=== PATIENT | female | born 1995 | race African-American/Black ===

== ENCOUNTER 2019-12-02 05:22 | Emergency (ER) | payer OTHER, SELFPAY ==
--- NOTE | ~2019-12-02 | CT_ITS ---
EXAMINATION: CT abdomen pelvis wo con DATE: 12/02/2019 06:34 INDICATION: Right upper quadrant abdominal and flank pain TECHNIQUE: Computed tomography (CT) of the abdomen and pelvis was performed without intravenous contr ast. Automated exposure control and iterative reconstruction technique were employed. The dose-length product was 288.39 mGy-cm. COMPARISON: None FINDINGS: Mild atelectasis in the right middle lobe. Visualized inferior heart is normal. No pericardial or ple ural effusion. Liver, gallbladder, spleen, pancreas and bilateral adrenal glands are normal. Kidneys and ureters are normal with no urolithiasis or hydroureteronephrosis. There are couple phleboliths in the pelvis. No bowel obstruction. Appendix is normal. Bladder and anteverted uterus are normal. The bilateral adnexa appear enlarged. There is mild edema/stranding in the pelvis and along the right par acolic gutter. No abscess or free intraperitoneal gas. Shotty bilateral inguinal lymph nodes. No path ologically enlarged abdominal lymphadenopathy. Bones are unremarkable. IMPRESSION: 1. Mild inflammatory stranding in the pelvis and right paracolic gutter which is of indeterminate ebonie ology with normal gallbladder and appendix and no urolithiasis or hydronephrosis. Would consider urin dixie tract infection as well as pelvic inflammatory disease considering the enlarged bilateral adnexa. Reviewed, dictated and finalized at location A. IMPRESSION: 1. Mild inflammatory stranding in the pelvis and right paracolic gutter which i s of indeterminate etiology with normal gallbladder and appendix and no urolith iasis or hydronephrosis. Would consider urinary tract infection as well as pelv ic inflammatory disease considering the enlarged bilateral adnexa.
[2019-12-02 05:29] VITALS: BP 143/100; PULSE 101; RESP 15; TEMP 37.2; O2SAT 100
[2019-12-02 05:38] VITALS: BP 143/100; PULSE 101; RESP 15; TEMP 37.2; O2SAT 100
[2019-12-02 05:43] LABS: Basophils Absolute Auto 0.1 K/mm3 (0.0-0.1); Basophils Percent Auto 0.6 % (0.2-1.2); Eosinophils Absolute Auto 0.1 K/mm3 (0-0.3); Eosinophils Percent Auto 0.9 % (0-4.4); Hematocrit 39.5 % (37.0-47.0); Hemoglobin 12.8 g/dL (12.0-15.0); Immature Granulocyte Absolute 0.06 K/mm3 (0.00-0.031); Immature Granulocyte Percent A 0.5 % (0-0.5); Lymphocytes Absolute Auto 2.32 K/mm3 (0.9-3.2); Lymphocytes Percent Auto 18.6 % (18.3-44.2); Mean Corpuscular HGB Conc 32.4 g/dl (32-36); Mean Corpuscular Hemoglobin 30.7 pg (26-34); Mean Corpuscular Volume 94.7 fl (80-100); Mean Platelet Volume 10.6 fl (7.4-10.4); Monocytes Absolute Auto 1.3 K/mm3 (0.1-0.6); Monocytes Percent Auto 10.4 % (2.6-8.5); Neutrophils Absolute Auto 8.6 K/mm3 (1.3-6.7); Platelet Count Result 285 k/mm3 (150-375); Red Blood Count 4.17 M/mm3 (4.2-5.4); Red Cell Distribution Width 13.8 % (11.5-14.5); White Blood Count 12.5 K/mm3 (4.5-10.0)
[2019-12-02 05:54] LABS: Alanine Aminotransferase 9 U/L (4-35); Albumin Level 4.2 g/dL (3.5-5.1); Alkaline Phosphatase 72 U/L (38-126); Aspartate Amino Transferase 20 U/L (14-36); Bilirubin,Total 0.6 mg/dL (0.2-1.3); Blood Urea Nitrogen 7 mg/dL (7-17); Carbon Dioxide 31 mmol/L (22-30); Chloride 101 mmol/L (98-107); Estimated Glomerular Filt Rate > 60; Glucose 104 mg/dL (65-105); Potassium 3.8 mmol/L (3.4-5.0); Sodium 137 mmol/L (137-145)
[2019-12-02 05:57] LABS: Add Urine Microscopic? YES; Appearance Urine Cloudy (Clear); Bacteria Urine Trace /hpf; Bilirubin Urine Negative (Negative); Blood Urine 1+ (Negative); Color Urine Amber (Yellow); Glucose Urine UA Negative (Negative); Ketones Urine Negative (Negative); Leukocyte Esterase Ur Negative LEU/UL (Negative); Mucus Urine Rare /lpf; Nitrate Urine Negative (Negative); Protein Urine 1+ mg/dL (Negative); Specific Grav Ur 1.019 (1.001-1.035); Squamous Epithelial Cell Urine Few /hpf (Few); Urobilinogen Urine Negative mg/dL (<2.0); WBC Urine 0-3 /hpf
[2019-12-02 06:18] LABS: Lipase < 10 U/L (23-300)
[2019-12-02] MEDS: MORPHINE SULFATE 4 MG/ML INJ IV PUSH (06:43)
[2019-12-02 06:44] VITALS: BP 117/83; PULSE 80; RESP 12; O2SAT 100
--- NOTE | 2019-12-02 06:53 | ED.ABDPAIN ---
HPI - Abdominal Pain General Chief Complaint: Abdominal Pain Stated Complaint: flank pain Time Seen by Provider: 12/02/19 06:12 History of Present Illness HPI narrative: Patient is a 23-year-old female who presents ER with right-sided abdominal pain. Ongoing for the last day. She reports she was seen in an urgent care yesterday and diagnosed with UTI and prescribed Macrobid. The pain began after that. She reports she is had some urinary frequency and dysuria. No vaginal discharge or vaginal bleeding. No nausea/vomiting/dizziness. Pain is worse when she lays on her left side better when she lays down flat. She is not taking any oral medications for this discomfort. She reports mild constipation but did have a bowel movement today. No diarrhea. Pain does not seem to radiate. No URI symptoms. Patient reports she would like an STD check but is not having symptoms at this time. Related Data Allergies Allergy/AdvReac Type Severity Reaction Status Date / Time No Known Allergies Allergy Unverified 01/21/18 13:35 Review of Systems Review of Systems: All systems reviewed & are unremarkable except as noted in HPI and below Constitutional: Constitutional: Denies chills, Denies fever(s) and Denies weakness ENT: Denies nasal congestion and Denies sore throat Respiratory: Respiratory: Denies cough and Denies dyspnea Gastrointestinal: Gastrointestinal: Reports abdominal pain, Denies constipation, Denies diarrhea, Denies nausea and Denies vomiting Genitourinary: Genitourinary: Denies abnormal vaginal bleeding, Denies hematuria, Reports nocturia, Reports dysuria, Denies pelvic pain, Reports flank pain and Denies vaginal discharge PMFSH Past Medical History Medical History (Updated 12/02/19 @ 07:54 by Gonzalez Amaral MD) No pertinent past medical history Surgical History Surgical History (Updated 12/02/19 @ 06:58 by Gonzalez Amaral MD) H/O umbilical hernia repair Social History Social History (Updated 12/02/19 @ 06:59 by Gonzalez Amaral MD) Social History: Denies tobacco use. Exam Narrative: Exam Narrative: GENERAL: Well-appearing, well-nourished, and in no acute distress. HEAD: Normocephalic, atraumatic. CHEST: Clear to auscultation. No respiratory distress. HEART: Regular rate and rhythm. Normal peripheral pulses. ABDOMEN: Soft, tender palpation right upper quadrant with guarding, nondistended. : Normal appearing cervix with no discharge. Pt w/o CMT or adnexal fullness/tendernss. EXTREMITIES: Normal range of motion. No edema. SKIN: Warm, dry, no rash. NEURO: Alert and oriented x3. PSYCH: Normal mood and affect. Course Course Emergency Course: Patient informed of results. Will treat as PID. IM ceftriaxone here, and oral doxycycline/Flagyl for home. Pain improved with morphine. Vital Signs Vital signs: Vital Signs Temperature 99.0 F 12/02/19 05:29 Pulse Rate 101 H 12/02/19 05:29 Respiratory Rate 15 12/02/19 05:29 Blood Pressure 143/100 H 12/02/19 05:29 Pulse Oximetry 100 12/02/19 05:29 Temperature 99.0 F 12/02/19 05:38 Pulse Rate 90 12/02/19 07:36 Respiratory Rate 16 12/02/19 07:36 Blood Pressure 124/87 12/02/19 07:36 Pulse Oximetry 100 12/02/19 07:36 MDM - Abdominal Pain Lab Data Result diagrams: 12/02/19 05:37 12/02/19 05:37 Labs: Lab Results 12/02/19 12/02/19 12/02/19 Range/Units 05:37 05:37 05:43 WBC 12.5 H (4.5-10.0) K/mm3 RBC 4.17 L (4.2-5.4) M/mm3 Hgb 12.8 (12.0-15.0) g/dL Hct 39.5 (37.0-47.0) % MCV 94.7 (80-100) fl MCH 30.7 (26-34) pg MCHC 32.4 (32-36) g/dl RDW 13.8 (11.5-14.5) % Plt Count 285 (150-375) k/mm3 MPV 10.6 H (7.4-10.4) fl Immature Gran % (Auto) 0.5 (0-0.5) % Neut % (Auto) 69.0 (45.5-73.1) % Lymph % (Auto) 18.6 (18.3-44.2) % [place] % (Auto) 10.4 H (2.6-8.5) % Eos % (Auto) 0.9 (0-4.4) % Baso % (Auto) 0.6 (0.2-1.2)
[2019-12-02 07:36] VITALS: BP 124/87; PULSE 90; RESP 16; O2SAT 100
[2019-12-02] MEDS: cefTRIAXone 250 MG VIAL IM (07:43)
--- NOTE | 2019-12-02 07:45 | PC.NURSE ---
Pelvic exam done on pt by doctor Dennis with myself at bedside.
== END 2019-12-02 08:09 | disposition home or self-care (01) ==
PROVIDERS: Emergency Provider Emergency Medicine
DX: N73.9 Female pelvic inflammatory disease, unspecified (principal)
CPT/HCPCS: 36415; 74176; 80053; 81001; 81025; 83690; 85025; 87070; 87491; 87591; 87808; 96372; 96374; 99284; J0696; J2270

== ENCOUNTER 2022-01-21 21:55 | Emergency (ER) | payer OTHER, SELFPAY ==
[2022-01-21 22:03] VITALS: BP 128/79; PULSE 104; RESP 18; TEMP 36.8; O2SAT 100
--- NOTE | 2022-01-21 22:29 | ED.GENADULT ---
HPI - General Adult General Chief complaint: Unspecified Stated complaint: COVID + Time Seen by Provider: 01/21/22 22:08 Source: patient History of Present Illness HPI narrative: Patient reports she is COVID-positive and has diffuse body aches is unsure. For she started to feel unwell today went to [facility] emergency room was tested for COVID was instructed to take Tylenol. She continues to not feel well she has not attempted any medications and presented here for further evaluation. Patient reports she is approximately 5 weeks by LMP. Denies any focal abdominal pain vaginal bleeding or urinary symptoms. Reports mild cough and nausea. Related Data Home Medications Medication Instructions Recorded Confirmed No Home Medications 01/21/22 01/21/22 Allergies Allergy/AdvReac Type Severity Reaction Status Date / Time No Known Allergies Allergy Unverified 01/21/18 13:35 Review of Systems Review of Systems: CONSTITUTIONAL: Denies fever, chills, or sweats. EYES: Denies visual changes, redness, or discharge. ENT: Denies rhinorrhea, congestion, sore throat, or otalgia. CARDIOVASCULAR: Denies chest pain, palpitations, or edema. RESPIRATORY: Denies cough or dyspnea. GASTROINTESTINAL: Denies abdominal pain, nausea, vomiting, or diarrhea. GENITOURINARY: Denies dysuria or hematuria. SKIN: Denies rash or itching. MUSCULOSKELETAL: Denies back pain, joint pain, or myalgia. NEUROLOGIC: Denies headache, numbness, dizziness, or weakness. PSYCHIATRIC: Denies anxiety or depression. All systems reviewed & are unremarkable except as noted in HPI and below PMFSH Past Medical History Medical History No pertinent past medical history Surgical History Surgical History H/O umbilical hernia repair Social History Social History Social History: Denies tobacco use. Exam Narrative: GENERAL: Well-appearing, well-nourished, and in no acute distress. HEAD: Normocephalic, atraumatic. EYES: PERRLA and EOMI. ENT: Nares clear, no rhinorrhea or epistaxis. Mucous membranes moist. NECK: Supple. No masses. No JVD CHEST: Clear to auscultation. No respiratory distress. No wheezes rales or rhonchi HEART: Regular rate and rhythm. No murmur heard. Normal peripheral pulses. ABDOMEN: Soft, nontender, nondistended EXTREMITIES: Normal range of motion. No edema. SKIN: Warm, dry, no rash. NEURO: No focal deficits. Alert and oriented x3. PSYCH: Normal mood and affect. Course Reevaluation(s) Reevaluation #1: Patient reports feeling much improved results and plan reviewed with patient. Patient is comfortable outpatient plan. Date: 01/21/22 Time: 23:44 Vital Signs Vital signs: Vital Signs Temperature 36.8 C 01/21/22 22:03 Pulse Rate 104 H 01/21/22 22:03 Respiratory Rate 18 01/21/22 22:03 Blood Pressure 128/79 01/21/22 22:03 Pulse Oximetry 100 01/21/22 22:03 Temperature 36.8 C 01/21/22 22:03 Pulse Rate 97 01/22/22 00:35 Respiratory Rate 16 01/22/22 00:35 Blood Pressure 121/72 01/22/22 00:35 Pulse Oximetry 98 01/22/22 00:35 Medical Decision Making MDM Narrative Medical decision making narrative: H&P as above, vss, pt looks clinically well, exam with nonacute abdomen, labs clinically unremarkable, additional labs/img considered, symptomatic relief available as needed, patient treated with fluids Tylenol and vitamin B6 on reevaluation pt continues to looks clinically well, reports feeling much improved. Suspect COVID-19 infection, dns severe sepsis, severe dehydration with severe electrolyte abnormality. plan to tx/monitor as op w/ pcm f/u findings/plan discussed with pt, pt agree/comfortable with plan, return precautions given Vital Signs Vital Signs: Vital Signs Temperature 36.8 C 01/21/22 22:03 Pulse Rate 104 H 01/21/22 22:03 Res
[2022-01-21] MEDS: DEXTROSE 5%/0.45% SOD CHL 1,000 ML 1000 ML IV CONT (22:44)
[2022-01-21] MEDS: ACETAMINOPHEN 500 MG TABLET 1000 MG PO (22:44)
[2022-01-21 22:53] LABS: Basophils Absolute Auto 0.1 K/mm3 (0.0-0.1); Basophils Percent Auto 0.4 % (0.2-1.2); Eosinophils Percent Auto 0.3 % (0-4.4); Hematocrit 38.2 % (37.0-47.0); Hemoglobin 12.9 g/dL (12.0-15.0); Immature Granulocyte Absolute 0.07 K/mm3 (0.00-0.031); Immature Granulocyte Percent A 0.5 % (0-0.5); Lymphocytes Absolute Auto 0.48 K/mm3 (0.9-3.2); Lymphocytes Percent Auto 3.7 % (18.3-44.2); Mean Corpuscular HGB Conc 33.8 g/dl (32-36); Mean Corpuscular Hemoglobin 32.2 pg (26-34); Mean Corpuscular Volume 95.3 fl (80-100); Mean Platelet Volume 10.1 fl (7.4-10.4); Monocytes Absolute Auto 1.4 K/mm3 (0.1-0.6); Monocytes Percent Auto 10.7 % (2.6-8.5); Neutrophils Percent Auto 84.4 % (45.5-73.1); Platelet Count Result 181 k/mm3 (150-375); Red Blood Count 4.01 M/mm3 (4.2-5.4); Red Cell Distribution Width 13.9 % (11.5-14.5); White Blood Count 13.1 K/mm3 (4.5-10.0)
[2022-01-21] MEDS: PYRIDOXINE HCL 100 MG/ML VIAL (*SPC) 50 MG IV PUSH (23:06)
[2022-01-21 23:12] LABS: Alanine Aminotransferase 14 U/L (6-35); Albumin Level 3.9 g/dL (3.5-5.1); Alkaline Phosphatase 59 U/L (38-126); Anion Gap 7 mmol/L (8-16); Aspartate Amino Transferase 22 U/L (14-36); Bilirubin,Total 0.1 mg/dL (0.2-1.3); Blood Urea Nitrogen 6 mg/dL (7-17); Calcium 8.8 mg/dL (8.4-10.2); Carbon Dioxide 24 mmol/L (22-30); Chloride 103 mmol/L (98-107); Estimated Glomerular Filt Rate > 60; Glucose 93 mg/dL (65-110); Potassium 3.8 mmol/L (3.4-5.0); Sodium 134 mmol/L (137-145)
[2022-01-22 00:35] VITALS: BP 121/72; PULSE 97; RESP 16; O2SAT 98
== END 2022-01-22 00:36 | disposition home or self-care (01) ==
PROVIDERS: Emergency Provider Emergency Medicine
DX: O98.511 Other viral diseases complicating pregnancy, first trimester (principal); U07.1 COVID-19; M79.10 Myalgia, unspecified site; Z3A.01 Less than 8 weeks gestation of pregnancy
CPT/HCPCS: 36415; 80053; 85025; 96361; 96374; 99284; A9270; J3415

== ENCOUNTER 2022-03-01 12:55 | Emergency (ER) | payer OTHER, SELFPAY ==
[2022-03-01] VITALS (12 sets, daily range): BP systolic 112–135; BP diastolic 70–90; PULSE 56–69; RESP 13–70; TEMP 36.3–36.5; O2SAT 99–100
--- NOTE | ~2022-03-01 | XR_ITS ---
XR chest 2V DATE: 03/01/2022 13:49 INDICATION: Intermittent right upper anterior chest pain for one week TECHNIQUE: 2 views COMPARISON: None FINDINGS: Bilateral cervical ribs. Included skeletal structures are otherwise unremarkable. Normal heart size. No hilar or mediastinal enlargement. No pulmonary infiltrate or consolidation, ple ural effusion or pulmonary vascular congestion or pneumothorax. IMPRESSION: Bilateral cervical ribs No active cardiopulmonary disease Reviewed, dictated and finalized at location B.
--- NOTE | 2022-03-01 12:57 | ECG_ITS ---
Measurements Intervals Reform Rate: 64 P: 46 UT: 154 QRS: 20 QRSD: 77 T: -56 QT: 367 QTc: 380 Interpretive Statements SINUS RHYTHM MODERATE T-WAVE ABNORMALITY, CONSIDER ANTEROLATERAL ISCHEMIA [-0.1+ mV T WAVE IN V3- V6] MODERATE T-WAVE ABNORMALITY, CONSIDER INFERIOR ISCHEMIA [-0.1+ mV T WAVE IN II/aVF] NO PREVIOUS ECG AVAILABLE FOR COMPARISON Electronically Signed On 03-01-2022 22:46:54 CDT by Franny Pablo M.D.
[2022-03-01 13:13] LABS: Basophils Absolute Auto 0.1 K/mm3 (0.0-0.1); Basophils Percent Auto 0.7 % (0.2-1.2); Eosinophils Absolute Auto 0.1 K/mm3 (0-0.3); Eosinophils Percent Auto 0.7 % (0-4.4); Hematocrit 41.9 % (37.0-47.0); Hemoglobin 14.1 g/dL (12.0-15.0); Immature Granulocyte Absolute 0.04 K/mm3 (0.00-0.031); Immature Granulocyte Percent A 0.4 % (0-0.5); Lymphocytes Absolute Auto 2.78 K/mm3 (0.9-3.2); Lymphocytes Percent Auto 30.5 % (18.3-44.2); Mean Corpuscular HGB Conc 33.7 g/dl (32-36); Mean Corpuscular Hemoglobin 32.4 pg (26-34); Mean Corpuscular Volume 96.3 fl (80-100); Mean Platelet Volume 10.1 fl (7.4-10.4); Monocytes Absolute Auto 0.7 K/mm3 (0.1-0.6); Monocytes Percent Auto 7.8 % (2.6-8.5); Neutrophils Absolute Auto 5.5 K/mm3 (1.3-6.7); Neutrophils Percent Auto 59.9 % (45.5-73.1); Platelet Count Result 213 k/mm3 (150-375); Red Blood Count 4.35 M/mm3 (4.2-5.4); Red Cell Distribution Width 14.2 % (11.5-14.5); White Blood Count 9.1 K/mm3 (4.5-10.0)
[2022-03-01 13:24] LABS: Alanine Aminotransferase 12 U/L (6-35); Albumin Level 4.2 g/dL (3.5-5.1); Alkaline Phosphatase 49 U/L (38-126); Anion Gap 6 mmol/L (8-16); Aspartate Amino Transferase 21 U/L (14-36); Bilirubin,Total 0.5 mg/dL (0.2-1.3); Blood Urea Nitrogen 10 mg/dL (7-17); Calcium 8.9 mg/dL (8.4-10.2); Carbon Dioxide 26 mmol/L (22-30); Chloride 108 mmol/L (98-107); Estimated CRCL calculation 69 ml/min; Estimated Glomerular Filt Rate > 60; Glucose 104 mg/dL (65-110); Lipase 20 U/L (23-300); Potassium 3.7 mmol/L (3.4-5.0); Sodium 140 mmol/L (137-145)
[2022-03-01 13:34] LABS: Troponin I < 0.012 ng/mL (0.000-0.034)
[2022-03-01 14:07] LABS: INR 1.2; Prothrombin Time 14.3 Seconds (11.1-14.7)
[2022-03-01 14:08] LABS: Partial Thromboplastin Time 29.8 SECONDS (22.3-36.8)
--- NOTE | 2022-03-01 15:25 | ED.CHESTPAIN ---
HPI - Chest Pain General Chief Complaint: Chest Pain Stated Complaint: chest pain Time Seen by Provider: 03/01/22 15:04 History of Present Illness HPI narrative: 26-year-old female here for evaluation of chest pain over the past week. Patient states the pain is constant, in the center of her chest and is worse with positions. She notes the pain improves when she leans forward. She has not tried any medications. She was sent from her primary care office due to an abnormal EKG. No shortness of breath, fevers, chills, rashes, nausea, vomiting. Related Data Home Medications Medication Instructions Recorded Confirmed No Home Medications 01/21/22 01/21/22 Allergies Allergy/AdvReac Type Severity Reaction Status Date / Time No Known Allergies Allergy Unverified 03/01/22 13:21 Review of Systems Review of Systems: Gen.: Denies fevers or chills Eyes: Denies eye pain or visual change ENT: Denies congestion Respiratory: Denies shortness of breath or cough CV: Reports chest pain GI: Denies abdominal pain nausea, emesis or diarrhea denies burning, urgency, frequency or hematuria Musculoskeletal: Denies back pain or muscle pain Neuro: Denies numbness, tingling, weakness or focal weakness Skin: Denies rash Except as documented, all other systems reviewed and negative PMFSH Past Medical History Medical History No pertinent past medical history Surgical History Surgical History H/O umbilical hernia repair Social History Social History Social History: Denies tobacco use. Exam Narrative: APPEARANCE: Well appearing, no pain in distress, well-nourished. Head: Normocephalic and atraumatic. EYES: PERRLA/EOMI, conjunctivae clear NOSE: No nasal drainage EARS: External ear normal in appearance THROAT: Oropharynx is clear. Mucous membranes are moist. NECK: Supple. No adenopathy, no masses. RESPIRATORY: Airway patent, respirations nonlabored. Clear to auscultation bilaterally, no rales, rhonchi, wheezing. CARDIOVASCULAR: Regular rate and rhythm without murmurs, rubs, or gallops. ABDOMINAL: Normoactive bowel sounds. Soft, nontender, nondistended. No rebound tenderness or guarding. MUSCULOSKELETAL: Extremities are warm and well-perfused. Moves all extremities well. No edema. NEURO: Normal speech. No focal neurologic deficits. SKIN: Skin is warm and dry. No rashes. PSYCHIATRIC: Normal affect/mood. Course Vital Signs Vital signs: Vital Signs Temperature 97.7 F 03/01/22 13:17 Pulse Rate 69 03/01/22 13:17 Respiratory Rate 70 H 03/01/22 13:17 Blood Pressure 135/78 03/01/22 13:17 Pulse Oximetry 100 03/01/22 13:17 Oxygen Delivery Room Air 03/01/22 13:17 Temperature 97.3 F L 03/01/22 17:11 Pulse Rate 68 03/01/22 17:11 Respiratory Rate 16 03/01/22 17:11 Blood Pressure 123/70 03/01/22 17:11 Pulse Oximetry 100 03/01/22 17:11 Oxygen Delivery Room Air 03/01/22 13:17 MDM - Chest Pain MDM Narrative Medical decision making narrative: 26-year-old female here for evaluation of chest pain over the past week that is worse with positions, improved with leaning forward. Her vital signs are normal, her heart and lungs are clear to auscultation. Her EKG does have some T wave inversion in lead II, and V3 through V6. Her troponin is negative x 2, and her basic lab studies are within normal limits; normal ESR. Her chest x-ray is clear, no cardiomegaly visualized; doubt pericardial effusion or tamponade physiology given normal vital signs / lack of JVD or muffled heart sounds. Discussed case with Dr. Pablo given findings on EKG. she did agree the EKG is abnormal especially given the patient's age, so recommended close outpatient work-up for an echocardiogram. Informed patient of these findings, emphasized esteban
[2022-03-01] MEDS: IBUPROFEN 400 MG TABLET 800 MG PO (15:41)
[2022-03-01 16:26] LABS: Troponin I < 0.012 ng/mL (0.000-0.034)
[2022-03-01 16:51] LABS: Erythrocyte Sedimentation Rate 4 mm/hr (0-20)
== END 2022-03-01 17:12 | disposition home or self-care (01) ==
PROVIDERS: Emergency Medicine; Physician Assistant; Emergency Provider Emergency Medicine; PCP Emergency Medicine
DX: I31.9 Disease of pericardium, unspecified (principal)
CPT/HCPCS: 36415; 71046; 80053; 83690; 84484; 85025; 85610; 85652; 85730; 93005; 99284; A9270

== ENCOUNTER 2023-06-17 12:56 | Emergency (ER) | payer OTHER, SELFPAY ==
--- NOTE | ~2023-06-17 | US_ITS ---
EXAMINATION: US venous doppler [facility] DATE: 06/17/2023 15:00 INDICATION: Left lower limb pain during TECHNIQUE: Grayscale ultrasound images without and with compression and Doppler ultrasound images of the left lower extremity veins were obtained. COMPARISON: None. FINDINGS: The visualized portions of left common femoral vein, profunda (deep) femoral vein, femoral vein, popl iteal vein, peroneal veins, posterior tibial veins, anterior tibial vein and greater saphenous vein o utflow are patent. The right common femoral vein and greater saphenous vein outflow track also visual ized and are patent. IMPRESSION: 1. No deep venous thrombosis in the left lower limb. Reviewed, dictated and finalized at location A.
[2023-06-17 12:59] VITALS: BP 132/86; PULSE 77; RESP 18; TEMP 36.6; O2SAT 100
[2023-06-17 13:57] LABS: Basophils Percent Auto 0.2 % (0.2-1.2); Eosinophils Percent Auto 0.5 % (0-4.4); Hematocrit 32.1 % (37.0-47.0); Hemoglobin 10.8 g/dL (12.0-15.0); Immature Granulocyte Absolute 0.05 K/mm3 (0.00-0.031); Immature Granulocyte Percent A 0.6 % (0-0.5); Lymphocytes Absolute Auto 1.72 K/mm3 (0.9-3.2); Lymphocytes Percent Auto 19.5 % (18.3-44.2); Mean Corpuscular HGB Conc 33.6 g/dl (32-36); Mean Corpuscular Hemoglobin 32.2 pg (26-34); Mean Corpuscular Volume 95.8 fl (80-100); Mean Platelet Volume 10.5 fl (7.4-10.4); Monocytes Absolute Auto 0.7 K/mm3 (0.1-0.6); Monocytes Percent Auto 7.6 % (2.6-8.5); Neutrophils Absolute Auto 6.3 K/mm3 (1.3-6.7); Neutrophils Percent Auto 71.6 % (45.5-73.1); Platelet Count Result 184 k/mm3 (150-375); Red Blood Count 3.35 M/mm3 (4.2-5.4); Red Cell Distribution Width 13.2 % (11.5-14.5); White Blood Count 8.8 K/mm3 (4.5-10.0)
[2023-06-17 14:07] LABS: Prothrombin Time 13.9 Seconds (11.1-14.7)
[2023-06-17 14:08] LABS: Partial Thromboplastin Time 30.8 SECONDS (22.3-36.8)
--- NOTE | 2023-06-17 14:15 | ED.EXTPRO ---
HPI - Extremity Problem General Chief complaint: Extremity Problem,Nontraumatic Stated complaint: knee pain Time Seen by Provider: 06/17/23 13:35 Source: patient Mode of arrival: ambulatory Limitations: no limitations History of Present Illness HPI Narrative: This is a 27 year old female that presents to the ER for left leg pain. Ongoing over the last couple of weeks. Reports the pain is sharp and worse with movement. No known injuries. She is currently 36 weeks . Her OB is Joyce Bonilla. Denies any related problems. Denies numbness, weakness, pelvic cramping, bleeding or leakage of fluids. Related Data Home Medications Medication Instructions Recorded Confirmed prenat.vits,bina,[id number] tablet 06/11/23 Allergies Allergy/AdvReac Type Severity Reaction Status Date / Time No Known Allergies Allergy Verified 06/17/23 13:01 Review of Systems Review of Systems: CONSTITUTIONAL: Denies fever SKIN: Denies rash MUSCULOSKELETAL: Reports back pain, and myalgia. NEUROLOGIC: Denies numbness, or weakness. All systems reviewed & are unremarkable except as noted in HPI and below PMFSH Past Medical History Medical History No pertinent past medical history Surgical History Surgical History H/O umbilical hernia repair Family History Family History (Updated 06/11/23 @ 12:59 by Kristal Jung RN) Grandparent Hypertension Mother Hypertension Social History Social History Social History: Denies tobacco use. Substance use: never Spiritual care concerns: No Exam Narrative: GENERAL: Well-appearing, well-nourished, and in no acute distress. HEAD: Normocephalic, atraumatic. EYES: EOMI. CHEST: Clear to auscultation. No respiratory distress. No wheezes rales or rhonchi HEART: Regular rate and rhythm. No murmur heard. Normal peripheral pulses. EXTREMITIES: Normal range of motion. No edema or erythema. Strength equal in bilateral lower extremities SKIN: Warm, dry, no rash. NEURO: No focal deficits. Alert and oriented x3. PSYCH: Normal mood and affect Course Course Emergency Course: Patient updated on work-up and agrees with plan of care Consultations Consultation #1: Spoke with Dr. Naidu about patient and workup who will follow up in clinic Date: 06/17/23 Time: 16:20 Vital Signs Vital signs: Vital Signs Temperature 97.9 F 06/17/23 12:59 Pulse Rate 77 06/17/23 12:59 Respiratory Rate 18 06/17/23 12:59 Blood Pressure 132/86 06/17/23 12:59 Pulse Oximetry 100 06/17/23 12:59 Oxygen Delivery Room Air 06/17/23 12:59 Temperature 97.9 F 06/17/23 12:59 Pulse Rate 77 06/17/23 12:59 Respiratory Rate 18 06/17/23 12:59 Blood Pressure 132/86 06/17/23 12:59 Pulse Oximetry 100 06/17/23 12:59 Oxygen Delivery Room Air 06/17/23 12:59 MDM - Extremity (Nontraumatic) MDM Narrative Medical decision making narrative: Patient presents the emergency department for left, posterior upper leg pain. Ongoing over the last couple of weeks. Patient currently 36 weeks . She denies any related concerns. Is feeling baby move. Normal heart tones noted. No bleeding, cramping, or loss of fluids. She is afebrile and nontoxic-appearing. No erythema or edema of the leg. CBC shows normocytic anemia with hemoglobin of 10.8. Metabolic panel without concerning findings. Magnesium mildly low, this was replaced. Ultrasound venous Doppler obtained to rule out DVT with leg pain and current . No DVT noted in the left lower limb. Spoke with Dr. Naidu about patient and workup who will follow up in clinic. Patient is stable and felt appropriate for further outpatient evaluation. She was given warnings to return to the ER Differential Diagnosis Differen
[2023-06-17 14:16] LABS: Anion Gap 5 mmol/L (8-16); Blood Urea Nitrogen 5 mg/dL (7-17); Calcium 8.8 mg/dL (8.4-10.2); Carbon Dioxide 24 mmol/L (22-30); Chloride 104 mmol/L (98-107); Estimated CRCL calculation 146 ml/min; Estimated Glomerular Filt Rate > 60; Glucose 86 mg/dL (65-110); Potassium 3.4 mmol/L (3.4-5.0); Sodium 133 mmol/L (137-145)
[2023-06-17 14:26] LABS: Magnesium 1.4 mg/dL (1.6-2.3)
[2023-06-17] MEDS: ACETAMINOPHEN 500 MG TABLET 1000 MG PO (14:27)
[2023-06-17] MEDS: MAGNESIUM CHLORIDE 64 MG TABLET PO (16:31)
[2023-06-17 16:35] VITALS: BP 116/63; PULSE 78; RESP 15; O2SAT 100
== END 2023-06-17 16:36 | disposition home or self-care (01) ==
PROVIDERS: Emergency Provider Physician Assistant; PCP Emergency Medicine
DX: O99.013 Anemia complicating pregnancy, third trimester (principal); D64.9 Anemia, unspecified; Z3A.36 36 weeks gestation of pregnancy; E83.42 Hypomagnesemia; O99.283 Endocrine, nutritional and metabolic diseases complicating pregnancy, third trimester; M79.605 Pain in left leg; O99.891 Other specified diseases and conditions complicating pregnancy
CPT/HCPCS: 36415; 80048; 83735; 85025; 85610; 85730; 93971; 99284; A9270

== ENCOUNTER 2023-07-05 16:48 | Inpatient (IN) | payer OTHER, SELFPAY ==
[2023-07-05 17:32] LABS: Basophils Percent Auto 0.4 % (0.2-1.2); Eosinophils Percent Auto 0.4 % (0-4.4); Hematocrit 32.9 % (37.0-47.0); Hemoglobin 11.3 g/dL (12.0-15.0); Immature Granulocyte Absolute 0.03 K/mm3 (0.00-0.031); Immature Granulocyte Percent A 0.4 % (0-0.5); Lymphocytes Absolute Auto 2.01 K/mm3 (0.9-3.2); Lymphocytes Percent Auto 23.9 % (18.3-44.2); Mean Corpuscular HGB Conc 34.3 g/dl (32-36); Mean Corpuscular Hemoglobin 32.4 pg (26-34); Mean Corpuscular Volume 94.3 fl (80-100); Mean Platelet Volume 10.9 fl (7.4-10.4); Monocytes Absolute Auto 0.8 K/mm3 (0.1-0.6); Monocytes Percent Auto 9.2 % (2.6-8.5); Neutrophils Absolute Auto 5.5 K/mm3 (1.3-6.7); Neutrophils Percent Auto 65.7 % (45.5-73.1); Platelet Count Result 186 k/mm3 (150-375); Red Blood Count 3.49 M/mm3 (4.2-5.4); Red Cell Distribution Width 13.5 % (11.5-14.5); White Blood Count 8.4 K/mm3 (4.5-10.0)
[2023-07-05 17:39] VITALS: BMI 29.7
--- NOTE | 2023-07-05 17:40 | LDADM ---
This patient, Gisell Donis, was admitted to Labor/Delivery/Recovery 106 on 07/05/23 at 16:48. Plans for labor, pain management and were discussed with patient. Patient/family oriented to hospital policies and general routines including ID bracelet, bed and alarms, visiting hours, pain management, procedures, bathroom and other care routines, personal items, smoking policy, room service/diet and guest tray routines, security routines, and visiting hours. Patient/Family are encouraged to report perceived risks to care and to ask questions if they do not understand what they are told or what they should do. See OBIX for further documentation.
[2023-07-05] MEDS: OXYTOCIN 30 UNITS/NS 500 ML 30 UNITS/500 ML BAG IV CONT (18:45)
[2023-07-05] MEDS: LACTATED RINGERS 1,000 ML 125 ML IV CONT (18:46)
--- NOTE | 2023-07-05 20:24 | WPDANESEPPF ---
Anes - Initial Pre Proc Eval Procedure: Labor epidural Date/Time: 07/05/23 20:24 Surgeon: Kayla Naidu MD Pre Op Diagnosis: Labor pain Pre Op Diagnosis: Induction of Labor Patient Data Age: 27 Gender: F Height: 1.52 m Weight: 69 kg Last Vital Signs O2 Del Method Room Air 07/05/23 17:39 Allergies Allergy/AdvReac Type Severity Reaction Status Date / Time No Known Allergies Allergy Verified 06/17/23 13:01 Home Medications Medication Instructions Recorded Confirmed Type prenat.vits,bina,[id number] 1 tablet PO DAILY 06/11/23 07/05/23 History Laboratory Tests 07/05/23 17:20 WBC 8.4 K/mm3 (4.5-10.0) RBC 3.49 L M/mm3 (4.2-5.4) Hgb 11.3 L g/dL (12.0-15.0) Hct 32.9 L % (37.0-47.0) MCV 94.3 fl (80-100) MCH 32.4 pg (26-34) MCHC 34.3 g/dl (32-36) RDW 13.5 % (11.5-14.5) Plt Count 186 k/mm3 (150-375) MPV 10.9 H fl (7.4-10.4) Immature Gran % (Auto) 0.4 % (0-0.5) Neut % (Auto) 65.7 % (45.5-73.1) Lymph % (Auto) 23.9 % (18.3-44.2) [place]zie % (Auto) 9.2 H % (2.6-8.5) Eos % (Auto) 0.4 % (0-4.4) Baso % (Auto) 0.4 % (0.2-1.2) Lymph # (Auto) 2.01 K/mm3 (0.9-3.2) Benzie # (Auto) 0.8 H K/mm3 (0.1-0.6) Eos # (Auto) 0.0 K/mm3 (0-0.3) Baso # (Auto) 0.0 K/mm3 (0.0-0.1) Abs Immat Gran (auto) 0.03 K/mm3 (0.00-0.031) Absolute Neuts (auto) 5.5 K/mm3 (1.3-6.7) Absolute Nucleated RBC 0.0 K/mm3 (0.0-0.012) Nucleated RBC % 0.0 % (0.0-0.2) RPR Pending Blood Type O Positive Antibody Screen Negative Patient hx anesthesia problems: none Family hx anesthesia problems: none Results Review: All pre-operative results and documents have been reviewed as part of the pre-operative evaluation. [facility] Past Medical History Medical History No pertinent past medical history Surgical History Surgical History H/O umbilical hernia repair Family History Family History Grandparent Hypertension Mother Hypertension Social History Social History Social History: Denies tobacco use. Smoking status: Never smoker Substance use: never Lack of Transportation: No Lack of Food: Never True Current Housing: I Have Housing Concerned About Future Housing: No Difficulty Paying Gas/Electric Bills: No Difficulty Paying for Meds: No Currently Unemployed: YES Education: High School Diploma/GED Difficulty w/ Childcare or Family Care: No Spiritual care concerns: No Anes - Eval Final PreProcedure Day of Procedure 07/05/23 20:24 Patient weight: normal Heart: regular rate and rhythm Lungs: clear to auscultation Neurological: alert and oriented ASA classification: II Anesthetic plan: proceed Anesthesia type and monitoring: regional epidural and standard monitoring Results Review: All pre-operative results and documents have been reviewed as part of the pre-operative evaluation. Informed Consent: The patient's anesthetic plan and its attendant risks and benefits were discussed with the patient/family/POA. Questions were solicited and answers provided to the satisfaction of the patient/family/POA.
[2023-07-05 21:51] VITALS: BP 125/65; PULSE 68
[2023-07-06] VITALS (167 sets, daily range): BP systolic 83–153; BP diastolic 47–97; PULSE 63–165; RESP 16–18; TEMP 36.4–37.6; O2SAT 97–100
[2023-07-06] MEDS: LACTATED RINGERS 1,000 ML 125 ML IV CONT ×3 (02:56→07:47)
--- NOTE | 2023-07-06 07:21 | WPDOBADMIT ---
Obstetrics - Admit Note Admission Note: record reviewed. No pertinent additions to the history and/or any subsequent changes in the physical findings that are not consistent with the expected course of the were found. Additions to the history and/or subsequent changes in the physical findings follow. IOL, suspected IUGR, SVE /2, anticipate vaginal delivery
--- NOTE | 2023-07-06 07:54 | WPDANESEPP ---
Anes - Eval Pre Procedure Procedure: labor epidural Date/Time: 07/06/23 07:54 Surgeon: Elysia Preop Diagnosis: labor pain Pre Op Diagnosis: Induction of Labor Patient Data Age: 27 Gender: F Height: 1.52 m Weight: 69 kg Last Vital Signs Temp 36.6 C 07/06/23 05:20 Pulse 74 07/06/23 05:19 BP 123/72 07/06/23 05:19 O2 Del Method Room Air 07/05/23 17:39 Allergies Allergy/AdvReac Type Severity Reaction Status Date / Time No Known Allergies Allergy Verified 06/17/23 13:01 Home Medications Medication Instructions Recorded Confirmed Type prenat.vits,bina,xmw-[id number]-akzxb 1 tablet PO DAILY 06/11/23 07/05/23 History Laboratory Tests 07/05/23 17:20 WBC 8.4 K/mm3 (4.5-10.0) RBC 3.49 L M/mm3 (4.2-5.4) Hgb 11.3 L g/dL (12.0-15.0) Hct 32.9 L % (37.0-47.0) MCV 94.3 fl (80-100) MCH 32.4 pg (26-34) MCHC 34.3 g/dl (32-36) RDW 13.5 % (11.5-14.5) Plt Count 186 k/mm3 (150-375) MPV 10.9 H fl (7.4-10.4) Immature Gran % (Auto) 0.4 % (0-0.5) Neut % (Auto) 65.7 % (45.5-73.1) Lymph % (Auto) 23.9 % (18.3-44.2) Trinity % (Auto) 9.2 H % (2.6-8.5) Eos % (Auto) 0.4 % (0-4.4) Baso % (Auto) 0.4 % (0.2-1.2) Lymph # (Auto) 2.01 K/mm3 (0.9-3.2) Trinity # (Auto) 0.8 H K/mm3 (0.1-0.6) Eos # (Auto) 0.0 K/mm3 (0-0.3) Baso # (Auto) 0.0 K/mm3 (0.0-0.1) Abs Immat Gran (auto) 0.03 K/mm3 (0.00-0.031) Absolute Neuts (auto) 5.5 K/mm3 (1.3-6.7) Absolute Nucleated RBC 0.0 K/mm3 (0.0-0.012) Nucleated RBC % 0.0 % (0.0-0.2) RPR Pending Blood Type O Positive Antibody Screen Negative Patient hx anesthesia problems: none Family hx anesthesia problems: none Results Review: All pre-operative results and documents have been reviewed as part of the pre-operative evaluation. [facility] Past Medical History Medical History No pertinent past medical history Surgical History Surgical History H/O umbilical hernia repair Family History Family History Grandparent Hypertension Mother Hypertension Social History Social History Social History: Denies tobacco use. Smoking status: Never smoker Substance use: never Lack of Transportation: No Lack of Food: Never True Current Housing: I Have Housing Concerned About Future Housing: No Difficulty Paying Gas/Electric Bills: No Difficulty Paying for Meds: No Currently Unemployed: YES Education: High School Diploma/GED Difficulty w/ Childcare or Family Care: No Spiritual care concerns: No Exam Day of Procedure 07/06/23 07:54 Patient weight: normal Heart: regular rate and rhythm Lungs: normal air movement Airway: Mallampati scale class II Neurological: alert and oriented
[2023-07-06] MEDS: ONDANSETRON INJ 4 MG/2 ML VIAL IV PUSH (11:47)
[2023-07-06] MEDS: SODIUM CHLORIDE 0.9% IV 300 ML 600 ML I-UTERINE (12:56)
[2023-07-06 14:06] LABS: Rapid Plasma Reagin Non-Reactive (NonReactive)
--- NOTE | 2023-07-06 15:34 | PM.OBPRVD ---
OB - Vaginal Delivery Note Procedure Delivery date: 07/06/23 Events: Intrauterine Growth Restriction (IUGR) Induction method: AROM and Per Pitocin Protocol Delivery monitor: None and Internal FHT Route of delivery: Episiotomy description: None Laceration Description: None Specimen: Yes Quantitative Blood Loss (ml): 250 Anesthesia type: Epidural Disposition: Floor Baby Date of : 07/06/23 Time of : 15:26 Weeks of gestation at delivery: 39 gender: Female presentation: vertex position: Left Occiput Anterior Placenta delivery description: Spontaneous Cord Vessel Description: 3 Vessels, Nuchal Cord and Tight score one minute: 8 Narrative: mother and bay skin to skin in stable condition
[2023-07-06] MEDS: OXYTOCIN 30 UNITS/NS 500 ML 30 UNITS/500 ML BAG 125 UNITS IV CONT (15:49)
[2023-07-06] MEDS: IBUPROFEN 600 MG TABLET PO (17:25)
[2023-07-06] MEDS: ACETAMINOPHEN 325 MG TABLET 650 MG PO (17:26)
[2023-07-06] MEDS: BENZOCAINE 20% AER SPR (*SP) 56 GM CAN 1 SPRAY TOPICAL (17:31)
[2023-07-06] MEDS: WITCH HAZEL 40 PADS 1 PAD TOPICAL (17:31)
--- NOTE | 2023-07-06 18:44 | PC.NURSE ---
Patient transferred to post room #290 via ( W/C ). Support person present. Oriented to unit, room, information board, rooming in, admission packet and security measures. Patient verbalizes understanding.
[2023-07-07] MEDS: IBUPROFEN 600 MG TABLET PO ×3 (01:06→17:52)
[2023-07-07 01:30] VITALS: BP 120/77; PULSE 67; RESP 18; TEMP 36.9; O2SAT 100
[2023-07-07 05:28] LABS: Hematocrit 28.4 % (37.0-47.0); Hemoglobin 9.6 g/dL (12.0-15.0)
[2023-07-07 08:30] VITALS: BP 102/67; PULSE 69; RESP 18; TEMP 36.4; O2SAT 100
[2023-07-07] MEDS: MULTIVIT/MIN/PREN/FOL AC/IRON TABLET 1 TAB PO (09:10)
[2023-07-07] MEDS: POLYSACCHARIDE IRON COMPLEX 150 MG CAPSULE PO ×2 (09:10→17:52)
[2023-07-07] MEDS: DOCUSATE SODIUM 100 MG CAPSULE PO ×2 (09:11→17:51)
--- NOTE | 2023-07-07 09:59 | WPDANLDPN2 ---
Anes-Prog Note L&D Date/Time: 07/07/23 09:59 Comfortable throughout: labor and delivery Neuraxial method: epidural Epidural/Spinal procedure site: clean & non-tender Neuro status: Neuro function grossly intact. Cardiovascular status: normal Respiratory status: normal Airway patency: baseline Mental status: baseline Post-Op hydration status: normal Vital Signs: Last Vital Signs Temp 98.5 F 07/07/23 01:30 Pulse 67 07/07/23 01:30 Resp 18 07/07/23 01:30 BP 120/77 07/07/23 01:30 Pulse Ox 100 07/07/23 01:30 O2 Del Method Room Air 07/05/23 17:39 Pain score (VAS): 0 I/O: Intake & Output 07/06/23 07/07/23 07/07/23 23:59 07:59 15:59 Intake Total 2400 Output Total 83 Balance 2317 Post-procedural complaints: none Patient feedback: Patient satisfied with anesthetic care.
[2023-07-07 19:56] VITALS: BP 118/68; PULSE 68; RESP 18; TEMP 36.9; O2SAT 98
[2023-07-08] MEDS: IBUPROFEN 600 MG TABLET PO (05:16)
[2023-07-08 08:30] VITALS: BP 111/63; PULSE 66; RESP 20; TEMP 36.6; O2SAT 100
[2023-07-08] MEDS: DOCUSATE SODIUM 100 MG CAPSULE PO (08:51)
[2023-07-08] MEDS: POLYSACCHARIDE IRON COMPLEX 150 MG CAPSULE PO (08:51)
[2023-07-08] MEDS: MULTIVIT/MIN/PREN/FOL AC/IRON TABLET 1 TAB PO (08:52)
--- NOTE | 2023-07-08 09:22 | PM.OBPNVD ---
OB - PN: Subj Subjective Date/time seen: 07/08/23 09:22 Patient comments: no complaints, pain well controlled and tolerating diet OB - PN: Obj Data Labs 07/07/23 05:07 OB - PN A/P Plan day: 2 Plan: routine care and discharge home Time Spent With Patient Time: Total time spent is greater than 50% in coordination of care (as documented) at patient's floor/unit and/or counseling patient: Exam Const: General: comfortable and no acute distress Resp: Effort & Inspection: normal respiratory effort Auscultation: no rales, no rhonchi and no wheezes Cardio: Rate: regular rate Heart sounds: no click, no murmurs and no rubs GI: GI Palp: Yes Soft to palpation and No Tenderness to palpation present (GI) Auscultation: normal bowel sounds Extrem: General: normal to inspection, no pedal edema and no calf tenderness
--- NOTE | 2023-07-08 09:22 | PM.OBDSVD ---
DS: Admitting Diagnosis Discharge Date July 08, 2023 Admitting Diagnosis term DS: Discharge Diagnosis Discharge Diagnosis (1) Post term , delivered: Code(s): O48.0 - Post-term Status: Acute OB - DS: Summary OB Procedures : None OB Procedures Intrapartum: Spontaneous Vag Delivery OB Procedures: : None Peripartum Data Laceration Description: None Episiotomy description: None Time Spent with Patient Time attestation: Total time spent providing and/or coordinating discharge services: DS: Data Data Completed and Pending Pending studies at discharge: Pending at discharge 07/06/23 15:30 Surgical [PTH] Routine Discharge Plan Discharge Discharging Clinician: Kayla Naidu Patient Disposition: Home, Self-Care Activity: pelvic rest Diet: regular Patient Instructions: Antibiotic Form Stand Alone Forms: General Discharge Information Follow-up/Referrals: Kayla Naidu MD [Physician] - Discharge Medications: Continued #2 Tablet 1 tablet PO DAILY Date of admission: 07/05/23 16:48 Primary Care Provider: Gopal Dia Admitting Provider: Kayla Naidu Attending physician on admission: Kayla Naidu Condition: Stable
--- NOTE | 2023-07-08 11:32 | PC.NURSE ---
Patient viewed the discharge video Mother & Baby Care, The First Two Weeks . Patient was given the opportunity and encouraged to ask questions. Patient verbalized understanding of information shared and has been given the mother/baby guide for home reference.
== END 2023-07-08 13:00 | disposition home or self-care (01) | DRG 560 ==
LOC: ANHLDR 16:53 → ANHOB2 07-06 19:02
PROVIDERS: Admitting Provider Obstetrics & Gynecology; PCP Emergency Medicine; Referring Provider Advanced Practice Midwife; Visit Provider Obstetrics & Gynecology
DX: O69.1XX0 Labor and delivery complicated by cord around neck, with compression, not applicable or unspecified (principal); Z37.0 Single live birth; Z3A.39 39 weeks gestation of pregnancy
CPT/HCPCS: 36415; 85014; 85018; 85025; 86592; 86850; 86900; 86901; 88307; A9270; J2405; J2590; J2795; J7030; J7120